=== PATIENT | male | born 1955 | race Caucasian/White ===

== ENCOUNTER 2017-02-01 20:29 | Emergency (ER) | payer OTHER ==
[~2017-02-01] VITALS: Ht 167.6 cm; Wt 81.6 kg
[~2017-02-01 20:29] MED LIST: RISPERDAL1 MG; XANAX1 M1
[2017-02-01 20:49] VITALS: BP 136/92
--- NOTE | 2017-02-01 23:29 | NUR ---
TO ER BED 5
--- NOTE | 2017-02-01 23:30 | NUR ---
PATIENT PRESENTS TO ED WITH c/o dizziness and needs wouund check on forehead . PT DENIES N/V/D; SKIN IS PINK/WARM/DRY; AAOX4 WITH EVEN AND STEADY GAIT; LUNGS CLEAR BL; HR EVEN AND REGULAR; PT DENIES ANY FEVER, CP, SOB, OR COUGH AT THIS TIME; PATIENT STATES PAIN OF 5/10 AT THIS TIME; VSS; PATIENT POSITIONED FOR COMFORT; HOB ELEVATED; BEDRAILS UP X2; BED DOWN. ER MD MADE AWARE OF PT STATUS.
[2017-02-01] MEDS ORDERED: MECLIZINE 25 MG TAB PO ONE (23:45)
--- NOTE | 2017-02-02 00:01 | NUR ---
EMT placing new bandage on forehead at this time, pt tolerated well.
--- NOTE | 2017-02-02 00:02 | NUR ---
pt to ct via w/c in stable condition
--- NOTE | 2017-02-02 00:15 | NUR ---
pt returned from ct via wc in stable condition
--- NOTE | 2017-02-02 01:26 | NUR ---
PT SLEEPING AT THIS TIME, NO DISTRESS NOTED AT THIS TIME
--- NOTE | 2017-02-02 02:35 | NUR ---
PT CONTINUES TO SLEEP, NO CHANGES AT THIS TIME
--- NOTE | 2017-02-02 06:38 | NUR ---
Patient discharged with v/s stable. Written and verbal after care instructions given and explained. Patient alert, oriented and verbalized understanding of instructions. Ambulatory with steady gait. All questions addressed prior to discharge. ID band removed. Patient advised to follow up with PMD. Rx of MDCLIZINE given. Patient educated on indication of medication including possible reaction and side effects. Opportunity to ask questions provided and answered.
[2017-02-02 06:39] VITALS: BP 145/89
== END 2017-02-02 06:38 | disposition home or self-care (01) ==
LOC: MED 20:29
DX: S01.01XD Laceration without foreign body of scalp, subsequent encounter (principal); I10 Essential (primary) hypertension; F17.200 Nicotine dependence, unspecified, uncomplicated; W19.XXXD Unspecified fall, subsequent encounter; Y92.89 Other specified places as the place of occurrence of the external cause; Y99.8 Other external cause status
CPT/HCPCS: 36415; 70450; 80053; 85025; 85610; 85730; 99285; J8597

== ENCOUNTER 2017-02-12 23:18 | Emergency (ER) | payer SELFPAY ==
--- NOTE | 2017-02-12 23:30 | NUR ---
PATIENT LEFT WITHOUT BEING SEEN BY DR. MYERS. NO FURTHER CARE PROVIDED FOR PATIENT.
== END 2017-02-12 23:30 | disposition left against medical advice (07) ==
LOC: MED 23:18
DX: S01.91XA Laceration without foreign body of unspecified part of head, initial encounter (principal); Z53.21 Procedure and treatment not carried out due to patient leaving prior to being seen by health care provider; X58.XXXA Exposure to other specified factors, initial encounter; Y93.89 Activity, other specified; Y92.89 Other specified places as the place of occurrence of the external cause; Y99.8 Other external cause status

== ENCOUNTER 2018-09-28 23:11 | Emergency (ER) | payer OTHER, MEDICAID ==
[~2018-09-28] VITALS: Ht 182.9 cm; Wt 109.4 kg
[2018-09-28 23:14] VITALS: BP 115/56
[2018-09-29 05:55] VITALS: BP 116/91
== END 2018-09-29 05:55 | disposition home or self-care (01) ==
LOC: MED 23:11
DX: F10.129 Alcohol abuse with intoxication, unspecified (principal); F17.210 Nicotine dependence, cigarettes, uncomplicated; I10 Essential (primary) hypertension
CPT/HCPCS: 99283

== ENCOUNTER 2018-12-01 23:52 | Emergency (ER) | payer OTHER ==
[~2018-12-01] VITALS: Ht 170.2 cm; Wt 95.3 kg
--- NOTE | 2018-12-01 23:52 | NUR ---
PT MEREDITH MEHTA, PREBOOK. TAKEN TO CHAIR E
[2018-12-01 23:58] VITALS: BP 91/67
--- NOTE | 2018-12-02 00:16 | NUR ---
Dr. Reese evaluating patient
--- NOTE | 2018-12-02 00:36 | NUR ---
PT TAKEN TO CT
[2018-12-02 01:08] VITALS: BP 105/71
--- NOTE | 2018-12-02 01:08 | NUR ---
Patient discharged with v/s stable. Written and verbal after care instructions given and explained. Patient verbalized understanding. Police with in custody. All questions addressed prior to discharge. Advised to follow up with PMD.
== END 2018-12-02 01:08 ==
LOC: MED 23:52
DX: S00.83XA Contusion of other part of head, initial encounter (principal); I10 Essential (primary) hypertension; W19.XXXA Unspecified fall, initial encounter; Y93.89 Activity, other specified; Y92.89 Other specified places as the place of occurrence of the external cause; Y99.8 Other external cause status
CPT/HCPCS: 70450; 99284

== ENCOUNTER 2018-12-14 13:43 | Emergency (ER) | payer OTHER ==
[~2018-12-14] VITALS: Ht 167.6 cm; Wt 115.7 kg
--- NOTE | 2018-12-14 13:44 | NUR ---
PT BIBA BLS TO BED 6
[2018-12-14 13:53] VITALS: BP 124/74
[2018-12-14] MEDS ORDERED: FOLIC ACID 5 MG, MULTIVITAMIN-12 10 ML, THIAMINE 100 MG, MAGNESIUM SULFATE 50% 2,000 MG... IV ONE ×5 (14:43)
[2018-12-14] MEDS ORDERED: NACL 0.9% 1,000 ML IV ONE (14:45)
--- NOTE | 2018-12-14 14:57 | NUR ---
63/M BIBA FROM STREET FOR ETOH.C/O FEELING WEAK. TRANSIENT. HX: ALCOHOLISM. NOT TAKING MEDS . EKG FIELD NSR.
[2018-12-14 15:31] LABS: ANION GAP 12.8 (8-16); CREATININE 0.8 mg/dL (0.7-1.3); POTASSIUM 3.8 mmol/L (3.5-5.1)
[2018-12-14 15:36] LABS: BASOPHILS % (AUTO) 0.4 % (0.0-2.0); EOSINOPHILS # (AUTO) 0.1 K/uL (0-0.4); EOSINOPHILS % (AUTO) 1.2 % (0.0-4.0); HEMATOCRIT 46.5 % (36-52); HEMOGLOBIN 15.7 g/dL (12.0-18.0); MEAN CORPUSCULAR HEMOGLOBIN 32 pg (27-31); MEAN CORPUSCULAR HGB CONC 34 g/dL (33-37); MEAN CORPUSCULAR VOLUME 93.9 fL (80-94); MONOCYTES # (AUTO) 0.7 K/uL (0.8-1.0); MONOCYTES % (AUTO) 8.4 % (1.7-9.3); PLATELET COUNT (AUTO) 237 K/uL (140-450); RED BLOOD CELL COUNT(AUTO) 4.95 MIL/uL (4.20-6.10); RED CELL DISTRIBUTION WIDTH 12.6 % (11.6-13.7); WHITE BLOOD COUNT (AUTO) 7.8 K/uL (4.8-10.8)
[2018-12-14 15:37] LABS: ALBUMIN 3.2 g/dL (3.4-5.0); TOTAL BILIRUBIN 0.9 mg/dL (0.0-1.0)
[2018-12-14 15:48] LABS: APPEARANCE,URINE CLEAR (CLEAR); BILIRUBIN,URINE NEGATIVE (NEGATIVE); BLOOD, URINE NEGATIVE (NEGATIVE); COLOR,URINE YELLOW (YELLOW); LEUKOCYTE ESTERASE ,URINE NEGATIVE (NEGATIVE); NITRITE, URINE NEGATIVE (NEGATIVE); UGLUCOSE NEGATIVE (NEGATIVE)
[2018-12-14 18:32] VITALS: BP 111/50
--- NOTE | 2018-12-14 18:32 | NUR ---
Patient discharged with v/s stable. Written and verbal after care instructions given and explained. Patient verbalized understanding. Ambulatory with steady gait. All questions addressed prior to discharge. Advised to follow up with PMD. GAVE DOCUMENT FOR RESORCE, FOOD & CLOTHES.
== END 2018-12-14 18:32 | disposition home or self-care (01) ==
LOC: MED 13:43
DX: F10.129 Alcohol abuse with intoxication, unspecified (principal); E11.9 Type 2 diabetes mellitus without complications; I10 Essential (primary) hypertension; F17.200 Nicotine dependence, unspecified, uncomplicated; Z59.0 Homelessness; Y90.4 Blood alcohol level of 80-99 mg/100 ml
CPT/HCPCS: 36415; 80053; 81003; 84484; 85025; 93005; 96365; 96366; 99284; A9153; G0482; J3411; J3475; J3490; J7030

== ENCOUNTER 2022-08-14 12:29 | Emergency (ER) | payer OTHER ==
[~2022-08-14] VITALS: Ht 170.2 cm; Wt 81.6 kg
[2022-08-14 12:33] VITALS: BP 104/54
--- NOTE | 2022-08-14 13:20 | NUR ---
PATIENT LEFT WITHOUT BEING SEEN BY DR. THAPA. NO FURTHER CARE PROVIDED FOR PATIENT.
--- NOTE | 2022-08-14 13:20 | NUR ---
PER ADMITTING PT SEEN WALKING OUT OF THE ED WITH BELONGINGS, STEADY GAIT
== END 2022-08-14 13:20 | disposition left against medical advice (07) ==
LOC: MED 12:29
DX: J00 Acute nasopharyngitis [common cold] (principal); Z53.21 Procedure and treatment not carried out due to patient leaving prior to being seen by health care provider

== ENCOUNTER 2023-09-11 12:09 | Emergency (ER) | payer OTHER ==
[~2023-09-11] VITALS: Ht 172.7 cm; Wt 93.0 kg
[~2023-09-11 12:09] MED LIST changes: +FAMO-90 PO; +ONDA-188 PO; -RISPERDAL1 MG; -XANAX1 M1
[2023-09-11 12:11] VITALS: BP 111/67; PULSE 84; RESP 17; TEMP 97.6; O2SAT 98
== END 2023-09-11 12:40 | disposition home or self-care (01) ==
LOC: MED 12:09
DX: F10.129 Alcohol abuse with intoxication, unspecified (principal); Y90.9 Presence of alcohol in blood, level not specified
CPT/HCPCS: 99283

== ENCOUNTER 2024-03-05 10:43 | Emergency (ER) | payer OTHER ==
[~2024-03-05] VITALS: Ht 172.7 cm; Wt 99.8 kg
[2024-03-05 10:45] VITALS: BP 140/78; PULSE 64; RESP 17; TEMP 97.7; O2SAT 92
[2024-03-05 10:50] VITALS: O2SAT 92
[2024-03-05] MEDS: NACL 0.9% 1,000 ML IV ONE (11:33)
[2024-03-05 11:34] LABS: BASOPHILS # (AUTO) 0.1 K/uL (0.00-0.22); BASOPHILS % (AUTO) 1.4 % (0.0-2.0); EOSINOPHILS # (AUTO) 0.3 K/uL (0-0.4); HEMATOCRIT 51.7 % (36-52); HEMOGLOBIN 17.9 g/dL (12.0-18.0); LYMPHOCYTES # (AUTO) 1.3 K/uL (2.0-11.5); LYMPHOCYTES % (AUTO) 27.8 % (20.5-51.1); MEAN CORPUSCULAR HEMOGLOBIN 32 pg (27-31); MEAN CORPUSCULAR HGB CONC 35 g/dL (33-37); MEAN CORPUSCULAR VOLUME 92.7 fL (80-94); MONOCYTES # (AUTO) 0.4 K/uL (0.8-1.0); MONOCYTES % (AUTO) 8.1 % (1.7-9.3); NEUTROPHILS # (AUTO) 2.7 K/uL (1.8-7.7); NEUTROPHILS % (AUTO) 56.7 % (42.2-75.2); PLATELET COUNT (AUTO) 245 K/uL (140-450); RED BLOOD CELL COUNT(AUTO) 5.57 MIL/uL (4.20-6.10); RED CELL DISTRIBUTION WIDTH 12.4 % (11.6-13.7); WHITE BLOOD COUNT (AUTO) 4.7 K/uL (4.8-10.8)
[2024-03-05 11:59] LABS: ANION GAP 9.5 (8-16); CALCIUM 8.2 mg/dL (8.5-10.1); CARBON DIOXIDE 34.6 mmol/L (21-32); CREATININE 0.7 mg/dL (0.6-1.3); POTASSIUM 4.1 mmol/L (3.5-5.1)
[2024-03-05 12:03] LABS: ALANINE AMINOTRANSFERASE 19 U/L (12-78); ALKALINE PHOSPHATASE 114 U/L (50-136); ASPARTATE AMINOTRANSFERASE 25 U/L (15-37); BILIRUBIN,DIRECT 0.1 mg/dL (0.0-0.3); TOTAL BILIRUBIN 0.4 mg/dL (0.0-1.0)
[2024-03-05 12:04] LABS: ALBUMIN 3.6 g/dL (3.4-5.0); CREATINE KINASE, TOTAL 185 U/L (39-308); TOTAL PROTEIN, SERUM 6.8 g/dL (6.4-8.2)
[2024-03-05 12:15] LABS: ALCOHOL, BLOOD 222 mg/dL (<10)
[2024-03-05 12:50] VITALS: O2SAT 97
[2024-03-05 18:45] VITALS: BP 109/83; PULSE 75; RESP 14; TEMP 98; O2SAT 96
== END 2024-03-05 18:45 | disposition home or self-care (01) ==
LOC: MED 10:43
DX: F10.129 Alcohol abuse with intoxication, unspecified (principal); R41.82 Altered mental status, unspecified; E11.9 Type 2 diabetes mellitus without complications; I10 Essential (primary) hypertension; G31.89 Other specified degenerative diseases of nervous system; Z79.4 Long term (current) use of insulin; Z79.899 Other long term (current) drug therapy; Y90.9 Presence of alcohol in blood, level not specified
CPT/HCPCS: 36415; 70450; 71045; 74176; 80048; 80076; 82140; 82550; 84484; 85025; 93005; 96360; 99285; G0482; J7030

== ENCOUNTER 2024-03-10 18:23 | Inpatient (IN) | payer OTHER ==
[~2024-03-10] VITALS: Ht 175.3 cm; Wt 97.5 kg
[2024-03-10 18:27] VITALS: BP 110/70; PULSE 90; RESP 16; TEMP 97.9; O2SAT 90
[2024-03-10] MEDS ORDERED: cefTRIAXone 1,000 MG VIAL ONE (19:41)
[2024-03-10] MEDS: cefTRIAXone 1,000 MG in DEXT 5% MINI-BAG PLUS 50 ML IV ONE (19:45)
[2024-03-10 19:57] LABS: BASOPHILS % (AUTO) 0.4 % (0.0-2.0); EOSINOPHILS # (AUTO) 0.1 K/uL (0-0.4); EOSINOPHILS % (AUTO) 1.2 % (0.0-4.0); HEMATOCRIT 51.7 % (36-52); HEMOGLOBIN 17.9 g/dL (12.0-18.0); LYMPHOCYTES # (AUTO) 0.9 K/uL (2.0-11.5); LYMPHOCYTES % (AUTO) 9.2 % (20.5-51.1); MEAN CORPUSCULAR HEMOGLOBIN 32 pg (27-31); MEAN CORPUSCULAR HGB CONC 35 g/dL (33-37); MONOCYTES # (AUTO) 0.6 K/uL (0.8-1.0); MONOCYTES % (AUTO) 6.2 % (1.7-9.3); NEUTROPHILS # (AUTO) 8.2 K/uL (1.8-7.7); PLATELET COUNT (AUTO) 228 K/uL (140-450); RED BLOOD CELL COUNT(AUTO) 5.55 MIL/uL (4.20-6.10); RED CELL DISTRIBUTION WIDTH 12.9 % (11.6-13.7); WHITE BLOOD COUNT (AUTO) 9.9 K/uL (4.8-10.8)
[2024-03-10 20:26] LABS: CALCIUM 6.4 mg/dL (8.5-10.1); CREATININE 0.6 mg/dL (0.6-1.3)
[2024-03-10] MEDS ORDERED: ONDANSETRON 4 MG/2 ML VIAL IVP PRN (20:30)
[2024-03-10] MEDS ORDERED: HYDROcodone/APAP 5/325 MG 1 TAB TAB PO PRN (20:30)
[2024-03-10] MEDS ORDERED: ACETAMINOPHEN 325 MG TAB PO PRN (20:30)
[2024-03-10 20:38] LABS: LACTIC ACID 3.9 mmol/L (0.4-2.0)
[2024-03-10 20:58] LABS: FLU A ANTIGEN negative (NEGATIVE); FLU B ANTIGEN NEGATIVE (NEGATIVE)
[2024-03-10] MEDS ORDERED: AZITHROMYCIN 500 MG INJ VIAL IV ONE (22:27)
[2024-03-10] MEDS: AZITHROMYCIN 500 MG in DEXTROSE 5% 250 ML IV SCH (22:35)
[2024-03-10] MEDS: NACL 0.9% 1,000 ML IV SCH (22:40)
[2024-03-11] VITALS (7 sets, daily range): BP systolic 103–105; BP diastolic 46–48; PULSE 66–78; RESP 16–24; TEMP 97.9–98.7; O2SAT 64–98
[2024-03-11] MEDS: ALBUTEROL SULFATE/IPRATROPIU 3 ML SOL IH SCH (00:22)
[2024-03-11] MEDS: ENOXAPARIN 40 MG/0.4 ML SYR SUBQ SCH (09:32)
[2024-03-11 10:59] LABS: BASOPHILS % (AUTO) 0.5 % (0.0-2.0); EOSINOPHILS # (AUTO) 0.1 K/uL (0-0.4); EOSINOPHILS % (AUTO) 1.7 % (0.0-4.0); HEMATOCRIT 44.1 % (36-52); HEMOGLOBIN 15.1 g/dL (12.0-18.0); LYMPHOCYTES # (AUTO) 0.9 K/uL (2.0-11.5); LYMPHOCYTES % (AUTO) 11.9 % (20.5-51.1); MEAN CORPUSCULAR HEMOGLOBIN 32 pg (27-31); MEAN CORPUSCULAR HGB CONC 34 g/dL (33-37); MEAN CORPUSCULAR VOLUME 93.5 fL (80-94); MONOCYTES # (AUTO) 0.5 K/uL (0.8-1.0); MONOCYTES % (AUTO) 6.6 % (1.7-9.3); NEUTROPHILS # (AUTO) 6.2 K/uL (1.8-7.7); NEUTROPHILS % (AUTO) 79.3 % (42.2-75.2); PLATELET COUNT (AUTO) 168 K/uL (140-450); RED BLOOD CELL COUNT(AUTO) 4.71 MIL/uL (4.20-6.10); RED CELL DISTRIBUTION WIDTH 12.7 % (11.6-13.7); WHITE BLOOD COUNT (AUTO) 7.8 K/uL (4.8-10.8)
[2024-03-11 11:15] LABS: ANION GAP 7.7 (8-16); CARBON DIOXIDE 33.7 mmol/L (21-32); CREATININE 0.8 mg/dL (0.6-1.3); POTASSIUM 3.4 mmol/L (3.5-5.1)
[2024-03-12] VITALS (10 sets, daily range): BP systolic 94–137; BP diastolic 42–70; PULSE 62–78; RESP 16–22; TEMP 97.5–99.3; O2SAT 92–100
[2024-03-12 06:49] LABS: BASOPHILS % (AUTO) 0.6 % (0.0-2.0); EOSINOPHILS # (AUTO) 0.3 K/uL (0-0.4); EOSINOPHILS % (AUTO) 4.7 % (0.0-4.0); HEMATOCRIT 44.8 % (36-52); HEMOGLOBIN 15.2 g/dL (12.0-18.0); LYMPHOCYTES # (AUTO) 1.2 K/uL (2.0-11.5); LYMPHOCYTES % (AUTO) 18.4 % (20.5-51.1); MEAN CORPUSCULAR HEMOGLOBIN 32 pg (27-31); MEAN CORPUSCULAR HGB CONC 34 g/dL (33-37); MONOCYTES # (AUTO) 0.5 K/uL (0.8-1.0); MONOCYTES % (AUTO) 7.9 % (1.7-9.3); NEUTROPHILS # (AUTO) 4.5 K/uL (1.8-7.7); NEUTROPHILS % (AUTO) 68.4 % (42.2-75.2); PLATELET COUNT (AUTO) 160 K/uL (140-450); RED BLOOD CELL COUNT(AUTO) 4.77 MIL/uL (4.20-6.10); RED CELL DISTRIBUTION WIDTH 12.7 % (11.6-13.7); WHITE BLOOD COUNT (AUTO) 6.6 K/uL (4.8-10.8)
[2024-03-12 07:23] LABS: CALCIUM 8.1 mg/dL (8.5-10.1); CARBON DIOXIDE 32.2 mmol/L (21-32); CREATININE 0.7 mg/dL (0.6-1.3); POTASSIUM 3.2 mmol/L (3.5-5.1)
[2024-03-12] MEDS ORDERED: POTASSIUM CHLORIDE 10 MEQ TABER PO SCH (07:45)
[2024-03-13] VITALS (13 sets, daily range): BP systolic 111–142; BP diastolic 54–84; PULSE 65–78; RESP 16–24; TEMP 96.4–99.1; O2SAT 90–100
[2024-03-13] MEDS ORDERED: POTASSIUM CHLORIDE 10 MEQ TABER PO SCH (14:00)
[2024-03-13] MEDS: POTASSIUM CHLORIDE 10 MEQ TABER PO ONE (18:46)
[2024-03-14] VITALS (7 sets, daily range): BP systolic 113–142; BP diastolic 55–79; PULSE 63–72; RESP 18–20; TEMP 97.3–98.1; O2SAT 68–96
[2024-03-14 07:24] LABS: BASOPHILS % (AUTO) 0.7 % (0.0-2.0); EOSINOPHILS # (AUTO) 0.4 K/uL (0-0.4); HEMATOCRIT 44.9 % (36-52); HEMOGLOBIN 15.1 g/dL (12.0-18.0); LYMPHOCYTES % (AUTO) 16.2 % (20.5-51.1); MEAN CORPUSCULAR HEMOGLOBIN 32 pg (27-31); MEAN CORPUSCULAR HGB CONC 34 g/dL (33-37); MEAN CORPUSCULAR VOLUME 93.8 fL (80-94); MONOCYTES # (AUTO) 0.5 K/uL (0.8-1.0); MONOCYTES % (AUTO) 8.2 % (1.7-9.3); NEUTROPHILS # (AUTO) 4.4 K/uL (1.8-7.7); NEUTROPHILS % (AUTO) 68.9 % (42.2-75.2); PLATELET COUNT (AUTO) 157 K/uL (140-450); RED BLOOD CELL COUNT(AUTO) 4.79 MIL/uL (4.20-6.10); RED CELL DISTRIBUTION WIDTH 12.8 % (11.6-13.7); WHITE BLOOD COUNT (AUTO) 6.4 K/uL (4.8-10.8)
[2024-03-14 07:44] LABS: ANION GAP 9.3 (8-16); CARBON DIOXIDE 28.5 mmol/L (21-32); CREATININE 0.7 mg/dL (0.6-1.3); POTASSIUM 3.8 mmol/L (3.5-5.1)
[2024-03-14] MEDS ORDERED: ROC2I IV (09:11)
[2024-03-14] MEDS ORDERED: BUDESONIDE 0.5 MG/2 ML NEBU INH SCH (19:30)
== END 2024-03-14 14:40 | DRG 177 ==
LOC: MED 18:23 → MTU 20:30
PROVIDERS: ADMIT Student in an Organized Health Care Education/Training Program; ATTEND Student in an Organized Health Care Education/Training Program
DX: J15.69 Pneumonia due to other Gram-negative bacteria (principal); J96.01 Acute respiratory failure with hypoxia; J44.1 Chronic obstructive pulmonary disease with (acute) exacerbation; Z59.00 Homelessness unspecified; J44.0 Chronic obstructive pulmonary disease with (acute) lower respiratory infection; R78.81 Bacteremia; Z20.822 Contact with and (suspected) exposure to COVID-19; F17.210 Nicotine dependence, cigarettes, uncomplicated; I10 Essential (primary) hypertension; E11.9 Type 2 diabetes mellitus without complications; Z79.899 Other long term (current) drug therapy; B96.89 Other specified bacterial agents as the cause of diseases classified elsewhere
CPT/HCPCS: 36415; 71045; 80048; 83605; 83880; 84484; 85025; 87040; 87081; 93005; 94640; 96365; 96367; 97116; 97163-GP; 97530; 99285; J0456; J0696; J1650; J7060

== ENCOUNTER 2024-05-20 17:42 | Inpatient (IN) | payer OTHER ==
[2024-05-20] VITALS (7 sets, daily range): BP systolic 121; BP diastolic 76; PULSE 87–95; RESP 21–28; TEMP 98.6; O2SAT 87–94
[~2024-05-20] VITALS: Ht 162.6 cm; Wt 98.0 kg
[~2024-05-20 17:42] MED LIST changes: -FAMO-90 PO; -ONDA-188 PO; +ROC2I IV
[2024-05-20] MEDS: ALBUTEROL SULFATE/IPRATROPIU 3 ML SOL IH ONE (18:05)
[2024-05-20] MEDS: IPRATROPIUM 0.02% 0.5 MG/2.5 ML NEBU INH ONE (18:46)
[2024-05-20] MEDS: ALBUTEROL 0.083% 2.5 MG/3 ML NEBU INH ONE ×2 (18:47→20:21)
[2024-05-20] MEDS: NACL 0.9% 1,000 ML IV ONE ×2 (19:20→21:32)
[2024-05-20] MEDS: methylPREDNISolone SS 125 MG/2 ML VIAL IVP ONE (19:20)
[2024-05-20 19:35] LABS: BASOPHILS % (AUTO) 0.6 % (0.0-2.0); EOSINOPHILS # (AUTO) 0.2 K/uL (0-0.4); EOSINOPHILS % (AUTO) 3.8 % (0.0-4.0); HEMATOCRIT 54.1 % (36-52); HEMOGLOBIN 18.1 g/dL (12.0-18.0); LYMPHOCYTES # (AUTO) 2.1 K/uL (2.0-11.5); LYMPHOCYTES % (AUTO) 32.1 % (20.5-51.1); MEAN CORPUSCULAR HEMOGLOBIN 32 pg (27-31); MEAN CORPUSCULAR HGB CONC 33 g/dL (33-37); MEAN CORPUSCULAR VOLUME 94.4 fL (80-94); MONOCYTES # (AUTO) 0.6 K/uL (0.8-1.0); MONOCYTES % (AUTO) 8.9 % (1.7-9.3); NEUTROPHILS # (AUTO) 3.5 K/uL (1.8-7.7); NEUTROPHILS % (AUTO) 54.6 % (42.2-75.2); PLATELET COUNT (AUTO) 224 K/uL (140-450); RED BLOOD CELL COUNT(AUTO) 5.73 MIL/uL (4.20-6.10); RED CELL DISTRIBUTION WIDTH 14.6 % (11.6-13.7); WHITE BLOOD COUNT (AUTO) 6.5 K/uL (4.8-10.8)
[2024-05-20 19:52] LABS: ANION GAP 11.5 (8-16); CALCIUM 8.2 mg/dL (8.5-10.1); CARBON DIOXIDE 31.9 mmol/L (21-32); CREATININE 0.8 mg/dL (0.6-1.3); POTASSIUM 3.4 mmol/L (3.5-5.1)
[2024-05-20] MEDS ORDERED: cefTRIAXone 1,000 MG VIAL ONE (21:01)
[2024-05-20] MEDS ORDERED: ALBUTEROL SULFATE/IPRATROPIU 3 ML SOL IH PRN (21:40)
[2024-05-21] VITALS (9 sets, daily range): BP systolic 106–135; BP diastolic 52–71; PULSE 76–95; RESP 18; TEMP 97.6–98.5; O2SAT 90–97
[2024-05-21 07:10] LABS: BASOPHILS % (AUTO) 0.1 % (0.0-2.0); HEMATOCRIT 49.7 % (36-52); HEMOGLOBIN 16.7 g/dL (12.0-18.0); LYMPHOCYTES # (AUTO) 0.3 K/uL (2.0-11.5); LYMPHOCYTES % (AUTO) 4.1 % (20.5-51.1); MEAN CORPUSCULAR HEMOGLOBIN 32 pg (27-31); MEAN CORPUSCULAR HGB CONC 34 g/dL (33-37); MEAN CORPUSCULAR VOLUME 94.3 fL (80-94); MONOCYTES % (AUTO) 0.6 % (1.7-9.3); NEUTROPHILS # (AUTO) 6.3 K/uL (1.8-7.7); NEUTROPHILS % (AUTO) 95.2 % (42.2-75.2); PLATELET COUNT (AUTO) 208 K/uL (140-450); RED BLOOD CELL COUNT(AUTO) 5.26 MIL/uL (4.20-6.10); RED CELL DISTRIBUTION WIDTH 14.9 % (11.6-13.7); WHITE BLOOD COUNT (AUTO) 6.6 K/uL (4.8-10.8)
[2024-05-21 07:34] LABS: ALBUMIN 3.3 g/dL (3.4-5.0); ANION GAP 14.4 (8-16); CALCIUM 7.9 mg/dL (8.5-10.1); CARBON DIOXIDE 29.6 mmol/L (21-32); TOTAL BILIRUBIN 0.3 mg/dL (0.0-1.0); TOTAL PROTEIN, SERUM 6.8 g/dL (6.4-8.2)
[2024-05-21] MEDS: PANTOPRAZOLE 40 MG INJ VIAL IVP SCH (09:42)
[2024-05-21] MEDS: NACL 0.9% 1,000 ML IV SCH (14:55)
[2024-05-21] MEDS ORDERED: LORazepam 1 MG TAB PO PRN ×2 (14:55)
[2024-05-21] MEDS ORDERED: ONDANSETRON 4 MG/2 ML VIAL IVP PRN (14:55)
[2024-05-21] MEDS ORDERED: MAG SULF 2000 MG/WATER PREMIX 50 ML IV PRN (15:05)
[2024-05-21] MEDS: chlordiazePOXIDE 25 MG CAP PO SCH (16:22)
[2024-05-21] MEDS: AZITHROMYCIN 500 MG in DEXTROSE 5% 250 ML IV SCH (17:42)
[2024-05-21] MEDS: ZOLPIDEM 5 MG TAB PO PRN (23:26)
[2024-05-22] VITALS (9 sets, daily range): BP systolic 108–130; BP diastolic 47–72; PULSE 63–84; RESP 18–25; TEMP 97–98.6; O2SAT 93–99
[2024-05-22 07:23] LABS: BASOPHILS % (AUTO) 0.3 % (0.0-2.0); EOSINOPHILS % (AUTO) 0.1 % (0.0-4.0); HEMATOCRIT 46.9 % (36-52); HEMOGLOBIN 15.8 g/dL (12.0-18.0); LYMPHOCYTES # (AUTO) 1.1 K/uL (2.0-11.5); LYMPHOCYTES % (AUTO) 9.4 % (20.5-51.1); MEAN CORPUSCULAR HEMOGLOBIN 32 pg (27-31); MEAN CORPUSCULAR HGB CONC 34 g/dL (33-37); MEAN CORPUSCULAR VOLUME 93.9 fL (80-94); MONOCYTES # (AUTO) 0.8 K/uL (0.8-1.0); MONOCYTES % (AUTO) 6.6 % (1.7-9.3); NEUTROPHILS # (AUTO) 9.6 K/uL (1.8-7.7); NEUTROPHILS % (AUTO) 83.6 % (42.2-75.2); PLATELET COUNT (AUTO) 202 K/uL (140-450); RED BLOOD CELL COUNT(AUTO) 4.99 MIL/uL (4.20-6.10); RED CELL DISTRIBUTION WIDTH 14.5 % (11.6-13.7); WHITE BLOOD COUNT (AUTO) 11.5 K/uL (4.8-10.8)
[2024-05-22 07:46] LABS: ALBUMIN 2.9 g/dL (3.4-5.0); ANION GAP 6.3 (8-16); CALCIUM 7.8 mg/dL (8.5-10.1); CREATININE 0.8 mg/dL (0.6-1.3); POTASSIUM 3.3 mmol/L (3.5-5.1); TOTAL BILIRUBIN 0.5 mg/dL (0.0-1.0); TOTAL PROTEIN, SERUM 5.8 g/dL (6.4-8.2)
[2024-05-22] MEDS: FOLIC ACID 1 MG TAB PO SCH (08:19)
[2024-05-22] MEDS: THIAMINE 100 MG TAB PO SCH (08:19)
[2024-05-22] MEDS: MULTIVITAMIN 1 TAB PO SCH (08:19)
[2024-05-22] MEDS: POTASSIUM CHLORIDE 10 MEQ TABER PO PRN ×2 (08:19→11:26)
[2024-05-22] MEDS ORDERED: MAG SULF 2000 MG/WATER PREMIX 50 ML IV PRN (10:25)
[2024-05-23] VITALS (8 sets, daily range): BP systolic 117–121; BP diastolic 53–74; PULSE 63–95; RESP 18; TEMP 96.9–97.6; O2SAT 91–99
[2024-05-23 06:48] LABS: BASOPHILS % (AUTO) 0.8 % (0.0-2.0); EOSINOPHILS % (AUTO) 0.8 % (0.0-4.0); HEMATOCRIT 48.4 % (36-52); HEMOGLOBIN 16.3 g/dL (12.0-18.0); LYMPHOCYTES # (AUTO) 1.3 K/uL (2.0-11.5); LYMPHOCYTES % (AUTO) 22.4 % (20.5-51.1); MEAN CORPUSCULAR HEMOGLOBIN 32 pg (27-31); MEAN CORPUSCULAR HGB CONC 34 g/dL (33-37); MEAN CORPUSCULAR VOLUME 94.7 fL (80-94); MONOCYTES # (AUTO) 0.6 K/uL (0.8-1.0); MONOCYTES % (AUTO) 9.4 % (1.7-9.3); NEUTROPHILS % (AUTO) 66.6 % (42.2-75.2); PLATELET COUNT (AUTO) 193 K/uL (140-450); RED BLOOD CELL COUNT(AUTO) 5.11 MIL/uL (4.20-6.10); RED CELL DISTRIBUTION WIDTH 14.7 % (11.6-13.7); WHITE BLOOD COUNT (AUTO) 5.9 K/uL (4.8-10.8)
[2024-05-23 07:12] LABS: MAGNESIUM 1.9 mg/dL (1.8-2.4); PHOSPHORUS 4.8 mg/dL (2.5-4.9)
[2024-05-23] MEDS ORDERED: CALC-1200 PO (13:17)
[2024-05-23] MEDS ORDERED: FOLI2000 PO (13:17)
[2024-05-23] MEDS ORDERED: AZIT250T4 PO (13:17)
[2024-05-23] MEDS ORDERED: ALBU0.0912 IH (13:18)
[2024-05-23] MEDS ORDERED: FOLI1TAB89 PO (13:20)
[2024-05-23] MEDS ORDERED: AZIT500T1 PO (13:20)
== END 2024-05-23 18:20 | disposition home or self-care (01) | DRG 917 ==
LOC: MED 17:42 → MTU 21:47
PROVIDERS: ADMIT Student in an Organized Health Care Education/Training Program; ATTEND Student in an Organized Health Care Education/Training Program
DX: T51.91XA Toxic effect of unspecified alcohol, accidental (unintentional), initial encounter (principal); G92.8 Other toxic encephalopathy; J96.00 Acute respiratory failure, unspecified whether with hypoxia or hypercapnia; J44.1 Chronic obstructive pulmonary disease with (acute) exacerbation; F10.10 Alcohol abuse, uncomplicated; E87.6 Hypokalemia; Z79.899 Other long term (current) drug therapy; Y90.8 Blood alcohol level of 240 mg/100 ml or more
CPT/HCPCS: 36415; 71045; 80048; 80053; 82948; 83735; 84100; 84484; 85025; 87045; 87081; 87177; 89055; 93005; 94640; 96365; 96375; 97116; 97163-GP; 97530; 99285; G0482; J0456; J0696; J1644; J2470; J2919; J7060; J7613; J7644